=== PATIENT | female | born 1965 | race Two or more races ===

== ENCOUNTER 2023-11-13 22:01 | Emergency (ER) | payer OTHER ==
[2023-11-13 22:16] VITALS: BMI 25.0
[2023-11-13] MEDS ORDERED: FAMOTIDINE 20 MG/50 ML IVPB 20 MG/50 ML MG IVPB ONE (23:09)
[2023-11-13] MEDS ORDERED: MAG HYDROX/AL HYDROX/SIMETH 30 ML UNIT-DOSE CUP ONE (23:09)
[2023-11-13] MEDS ORDERED: ONDANSETRON 4 MG/2 ML VIAL ONE (23:09)
[2023-11-13] MEDS ORDERED: ACETAMINOPHEN INJECTION 100 ML IVPB ONE (23:09)
[2023-11-13 23:59] LABS: BASO % 0.8 % (0-2.0); HEMATOCRIT 36.8 % (32.4-45.2); HEMOGLOBIN 12.6 GM/dL (10.7-15.3); LYMPH % 13.3 % (8-40); MCH 29.9 pg (25.7-33.7); MCHC 34.2 g/dl (32.0-36.0); MEAN CELL VOLUME 87.3 fl (80-96); MEAN PLT VOLUME 6.8 fl (7.5-11.1); MONO % 10.8 % (3.8-10.2); NEUT % 75.1 % (42.8-82.8); PLATELET COUNT 228 10^3/uL (134-434); RBC 4.21 M/mm3 (3.60-5.2); RDW 14.4 % (11.6-15.6); WHITE BLOOD COUNT 11.2 K/mm3 (4.0-10.0)
[2023-11-14] MEDS: ACETAMINOPHEN 1000 MG/100 ML BAG IVPB ONE (00:03)
[2023-11-14] MEDS: SODIUM CHLORIDE 1,000 ML IV STA (00:05)
[2023-11-14] MEDS: ONDANSETRON 4 MG/2 ML VIAL IVPUSH ONE (00:05)
[2023-11-14] MEDS: MAG HYDROX/AL HYDROX/SIMETH 30 ML UNIT-DOSE CUP PO ONE (00:06)
[2023-11-14 00:19] LABS: POTASSIUM 3.5 mmol/L (3.5-5.1)
[2023-11-14 00:22] LABS: CALCIUM 8.6 mg/dL (8.5-10.1)
[2023-11-14 00:23] LABS: ALBUMIN 3.4 g/dl (3.4-5.0); BLOOD UREA NITROGEN 15.4 mg/dL (7-18)
[2023-11-14 00:26] LABS: CREATININE 0.9 mg/dL (0.55-1.3)
[2023-11-14 00:27] LABS: BILIRUBIN,TOTAL 0.6 mg/dL (0.2-1); TOT PROT 7.1 g/dl (6.4-8.2)
[2023-11-14] MEDS: FAMOTIDINE 20 MG/50 ML IVPB 20 MG/50 ML MG IVPB ONE (00:50)
[2023-11-14 02:29] VITALS: BP 101/61; PULSE 68; RESP 14; TEMP 98.9
== END 2023-11-14 02:26 | disposition home or self-care (01) ==
LOC: JER 22:01
PROC: 3E033GC Introduction of Other Therapeutic Substance into Peripheral Vein, Percutaneous Approach (ICD-10-PCS; principal; 2023-11-13)
PROC: 3E033GC Introduction of Other Therapeutic Substance into Peripheral Vein, Percutaneous Approach (ICD-10-PCS; 2023-11-13)
PROC: 3E033NZ Introduction of Analgesics, Hypnotics, Sedatives into Peripheral Vein, Percutaneous Approach (ICD-10-PCS; 2023-11-13)
PROC: 3E0337Z Introduction of Electrolytic and Water Balance Substance into Peripheral Vein, Percutaneous Approach (ICD-10-PCS; 2023-11-13)
DX: R51.9 Headache, unspecified (principal); R10.9 Unspecified abdominal pain; R11.0 Nausea; R50.9 Fever, unspecified
CPT/HCPCS: 36415; 80053; 83605; 83690; 83735; 85025; 93005; 93010; 99284-25; J0131